=== PATIENT | female | born 1990 | race Caucasian/White ===

== ENCOUNTER 2018-12-10 01:08 | Emergency (ER) | payer BC, MEDICAID, OTHER ==
--- NOTE | 2018-12-10 01:45 | ED ---
Shortness of Breath - HPI Summary HPI Summary: This patient is a 27 year old F presenting to [facility] accompanied by and daughter with a chief complaint of SOB since 12/08/18 at night. Symptoms aggravated by nothing. Symptoms alleviated by nothing. CC described as something sitting on her chest. Pt reports dealing with cold since Tuesday/ Tuesday and thought she was improving (symptoms include epistaxis, sneezing, drowsiness, and denies coughing). Pt reports slight chest discomfort during the week. Pt reports Tuesday night SOB started and was taking Mucinex but not coughing up anything (reports she feels a little phlegm coming up but mostly dry cough). Denies appetite change. Denies diabetes, HTN. Last period was end of November. - History of Current Complaint Chief Complaint: EDShortnessOfBreath Time Seen by Provider: 12/10/18 01:35 Hx Obtained From: Patient Onset/Duration: Lasting Days, Still Present Timing: Constant Aggravating Factors: Nothing Alleviating Factors: Nothing Associated Signs & Symptoms: Negative - Denies appetite change., Cough ( Nonproductive) - Allergy/Home Medications Allergies/Adverse Reactions: Allergies Allergy/AdvReac Type Severity Reaction Status Date / Time tomato Allergy Stomach Verified 12/10/18 01:13 Cramps Home Medications: Home Medications FLUoxetine CAP* [PROzac CAP*] 20 mg PO DAILY 12/10/18 [History Confirmed ] PMH/Surg Hx/FS Hx/Imm Hx Cardiovascular History: Reports: Hx Hypertension - induced - labetalol Respiratory History: Reports: Hx Asthma - no issues since 12/2014 GI History: Denies: Hx Gall Bladder Disease Sensory History: Reports: Hx Contacts or Glasses Opthamlomology History: Reports: Hx Contacts or Glasses - Surgical History Surgery Procedure, Year, and Place: c section 2016 Infectious Disease History: No Infectious Disease History: Denies: Hx Hepatitis, Hx Human Immunodeficiency Virus (HIV), History Other Infectious Disease, Traveled Outside the [place] in Last 30 Days - Family History Known Family History: Positive: Diabetes - Social History Alcohol Use: None Hx Substance Use: No Substance Use Type: Reports: None Hx Tobacco Use: No Smoking Status (MU): Never Smoked Tobacco Have You Smoked in the Last Year: No Review of Systems Positive: Other - drowsiness, denies appetite change Positive: Epistaxis, Other - sneezing Positive: Other - chest discomfort Positive: Shortness Of Breath, Cough All Other Systems Reviewed And Are Negative: Yes Physical Exam - Summary Physical Exam Summary: Appearance: Well-appearing, Well-nourished, lying in bed comfortably Skin: Warm, dry, no obvious rash Eyes: sclera anicteric, no conjunctival pallor ENT: mucous membranes moist, pharynx appears normal Neck: Supple, nontender Respiratory: forced expiration, wheezing, coughs quite a bit, no focal signs of consolidation Cardiovascular: Normal S1, S2. No murmurs. Normal distal pulses in tibial and radial bilaterally. Abdomen: Soft, nontender, normal active bowel sounds present Musculoskeletal: Normal, Strength/ROM Intact Neurological: A&Ox3, awake and alert, mentation is normal, speech is fluent and appropriate Psychiatric: affect is normal, does not appear anxious or depressed Triage Information Reviewed: Yes Vital Signs On Initial Exam: Initial Vitals Temp Pulse Resp BP Pulse Ox 98.1 F 100 18 183/119 98 12/10/18 01:08 12/10/18 01:08 12/10/18 01:08 12/10/18 01:08 12/10/18 01:08 Vital Signs Reviewed: Yes Procedures - Sedation Patient Received Moderate/Deep Sedation with Procedure: No Diagnostics - Vital Signs Vital Signs Temp Pulse Resp BP Pulse Ox 12/10/18 01:25 94 98 12/10/18 01:08 98.1 F 100 18 183/119 98 - Laboratory Lab Statement: Any lab studies that have been ordered have been reviewed, and results considered in the medical decision making process. Course/Dx - Course Course Of Treatment: This patient is a 27 year old F presenting to [facility] accompanied by and daughter with a chief complaint of SOB since 12/08/18 at night. CC described as something sitting on her chest. Pt reports dealing with cold since Tuesday/Tuesday and thought she was improving (symptoms include epistaxis, sneezing, drowsiness, and denies coughing). Pt reports slight chest discomfort during the week. Pt reports Tuesday night SOB started and was taking Mucinex but not coughing up anything (reports she feels a little phlegm coming up but mostly dry cough). Denies appetite change. Physical Exam Findings shows no abnormalities except for forced expiration, wheezing, coughs quite a bit, no focal signs of consolidation. In the ED course the patient was given 2 ml Albuterol, 40 mg Prednisone PO. Patient will be discharged. The patient is agreeable with this plan. - Diagnoses Provider Diagnoses: Bronchitis, Asthma exacerbation Discharge ED - Sign-Out/Discharge Documenting (check all that apply): Patient Departure - discharge - Discharge Plan Condition: Improved Disposition: HOME Prescriptions: Albuterol HFA INHALER* [Ventolin HFA Inhaler*] 1 - 2 puff INH Q6H PRN #1 mdi PRN Reason: Wheezing Azithromycin TAB* [Zithromax TAB (Z-JACOB) 250 mg #6 tabs] 2 tab PO .TODAY, THEN 1 DAILY #1 jacob predniSONE TAB* [Deltasone 20 MG TAB*] 40 mg PO DAILY 5 Days #10 tab Patient Education Materials: Asthma (ED), Acute Bronchitis (ED) Referrals: [facility] [Outside] - Billing Disposition and Condition Condition: IMPROVED Disposition: Home - Attestation Statements Document Initiated by Scribe: Yes Documenting Scribe: Evelyn Novoa Provider For Whom Glenny is Documenting (Include Credential): Dr. Rayray Suh MD Scribe Attestation: Evelyn Aguilera, scribed for Dr. Rayray Suh MD on 12/18/18 at 0001. Scribe Documentation Reviewed: Yes Provider Attestation: The documentation as recorded by the Evelyn craig accurately reflects the service I personally performed and the decisions made by me, Dr. Rayray Suh MD Status of Scribe Document: Viewed
[2018-12-10] MEDS ORDERED: predniSONE TAB* 20 MG PO ONE (01:48)
[2018-12-10] MEDS ORDERED: Albuterol 0.5% CONC NEB.SOL* 5 MG/ML 20 ml BOT INH ONE (01:48)
[2018-12-10 04:10] VITALS: BP 152/104
== END 2018-12-10 04:19 | disposition home or self-care (01) ==
LOC: ED 01:08
DX: J45.901 Unspecified asthma with (acute) exacerbation (principal); Z79.899 Other long term (current) drug therapy
CPT/HCPCS: 99283; J7512; J7611